=== PATIENT | female | born 1970 | race Caucasian/White ===

== ENCOUNTER 2021-08-04 10:54 | Emergency (ER) | payer OTHER ==
[~2021-08-04] VITALS: Ht 165.1 cm; Wt 81.4 kg
[2021-08-04] MEDS ORDERED: LEXA1TAB2 PO (11:04)
[2021-08-04] MEDS ORDERED: METF500T13 PO (11:04)
[2021-08-04] MEDS ORDERED: CRES20TA2 PO (11:04)
[2021-08-04] MEDS ORDERED: ALTA1CAP2 PO (11:05)
[2021-08-04] MEDS ORDERED: NORCO, ANEXSIA 5/325MG TABLET (HYDROcodone/ACETAMINOPHEN) PO ONE (12:25)
[2021-08-04 12:56] VITALS: BP 132/79
[2021-08-04] MEDS ORDERED: HYDR-3713 PO (13:00)
== END 2021-08-04 13:09 | disposition home or self-care (01) ==
LOC: M ED 10:54
DX: S12.100A Unspecified displaced fracture of second cervical vertebra, initial encounter for closed fracture (principal); W01.0XXA Fall on same level from slipping, tripping and stumbling without subsequent striking against object, initial encounter; Y92.018 Other place in single-family (private) house as the place of occurrence of the external cause; I10 Essential (primary) hypertension; E11.9 Type 2 diabetes mellitus without complications; E78.5 Hyperlipidemia, unspecified; F33.9 Major depressive disorder, recurrent, unspecified; F41.9 Anxiety disorder, unspecified; M43.22 Fusion of spine, cervical region; Z79.899 Other long term (current) drug therapy; Z79.82 Long term (current) use of aspirin